=== PATIENT | male | born 1970 | race Caucasian/White ===

== ENCOUNTER 2019-04-13 11:25 | Emergency (ER) | payer SELFPAY ==
[~2019-04-13] VITALS: Ht 180.3 cm; Wt 86.2 kg
[2019-04-13 11:26] VITALS: Ht 180.3 cm; Wt 86.2 kg
[2019-04-13 15:39] VITALS: BP 132/99
== END 2019-04-13 15:39 | disposition home or self-care (01) ==
LOC: ED 11:25
DX: S22.31XA Fracture of one rib, right side, initial encounter for closed fracture (principal); I11.0 Hypertensive heart disease with heart failure; I50.9 Heart failure, unspecified; E78.00 Pure hypercholesterolemia, unspecified; F17.210 Nicotine dependence, cigarettes, uncomplicated; Z98.890 Other specified postprocedural states; X58.XXXA Exposure to other specified factors, initial encounter; Y93.89 Activity, other specified; Y92.89 Other specified places as the place of occurrence of the external cause; Y99.8 Other external cause status
CPT/HCPCS: J1885; J2270